=== PATIENT | female | born 1950 | race Two or more races ===

== ENCOUNTER 2023-03-05 10:04 | Outpatient (AMB) | payer OTHER, SELFPAY ==
--- NOTE | 2023-03-05 10:25 | A.OFFVIS_ITS ---
Intake Vital Signs 03/05/23 10:27 Height 5 ft 6.5 in Weight 143 lb 4.807 oz BMI 22.8 BP 138/63 Blood Pressure Location Lt brachial Position Standing Pulse 71 Pulse Source Pulse Oximeter Pulse Oximetry (%) 97 Oxygen Delivery Method Room Air Intake Visit Reasons: Asthma Public Records Researcher Required: No Allergies latex Allergy (Severe, Verified 03/05/23 10:32) Irritable on Skin Penicillins Adverse Reaction (Severe, Verified 03/05/23 10:32) Swelling HPI HPI Comments History of Present Illness Details The patient is here for a pulmonary evaluation. The patient is a 72 year woman with a history of lifelong asthma in addition to allergies who was being followed closely by an health promotion officer in [place] who recently retired. Ultimately she has mild intermittent asthma. She has been controlled with Xopen ex. 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 The patient has tried albuterol, unfortunately, it causes an adverse effect and she cannot tolerate any formulations of albuterol. Therefore, she was placed on Xopenex and she seems to be tolerating well. She was also given HFA and ampules. Although she does need a nebulizer. Therefore will risk West a nebulizer for her at this time for her to use with the levo albuterol. Clinically the patient is feeling well at this time. She needs to undergo further evaluation for kidney stones and she has other procedures that have her some what where it. At this point will hold off on doing any breathing studies because of her history of the aneurysm and clinically she is doing okay. Will have her follow-up in 3 months and will decide if additional interventions are required. [facility] Medical History (Updated 03/05/23 @ 11:00 by Julio C Bergeron MD) Kidney stone Aneurysm artery, neck Glaucoma Chronic allergic rhinitis Asthma Social History (Updated 03/05/23 @ 10:37 by SHERRIE Clemens) Patient Tobacco Use Status: Never used Tobacco Review of Systems Const Denies fever(s) Eyes Denies change in vision Card Denies chest pain Resp Reports cough and Reports wheezing GI Reports no additional complaints Musc Reports no additional complaints Skin/Breast Denies rash Neuro Reports no additional complaints Ottoniel/Lymph Denies lymphadenopathy Aller/Immun Reports wheezing Physical Exam Vital Signs: Last Vital Signs Pulse 71 03/05/23 10:27 BP 138/63 03/05/23 10:27 Pulse Ox 97 03/05/23 10:27 Oxygen Delivery Method Room Air 03/05/23 10:27 BMI result Body Mass Index 22.8 Const General: comfortable HEENT Head: Yes normocephalic Neck Neck: Yes supple Chest Chest palpation & inspection: normal inspection of the chest Resp Effort & Inspection: normal respiratory effort Auscultation: no wheezes and diminished lung sounds Cardio Rate: regular rate Rhythm: regular rhythm Heart sounds: S1 normal heart sound present and S2 normal heart sound present GI Palpation (GI): Soft to palpation Skin General skin exam: no rashes or lesions noted Extrem General: Yes no clubbing, cyanosis or edema Office Procedures Nebulizer Teach Details: Chelsea was educated on the proper use and cleaning of the nebulizer machine. Chelsea states she understands and does not have any questions at this time. [id number] - Nebulizer Teach Assessment & Plan Assessment & Plan (1) Asthma: Code(s): J45.909 - Unspecified asthma, uncomplicated Qualifiers: Asthma complication type: uncomplicated Asthma persistence: persistent Asthma severity: moderate Qualified Code(s): J45.40 - Moderate persistent asthma, uncomplicated (2) Chronic allergic rhinitis: Code(s): J30.9 - Allergic rhinitis, unspecified (3) Glaucoma: Code(s): H40.9 - Unspecified glaucoma Qualifiers: Glaucoma type: unspecified Laterality: unspecified laterality Qualified Code(s): H40.9 - Unspecified glaucoma Plan Will provide a nebulizer continue Xopenex as needed F/U 3-4 months Orders: Orders AMB Nebulizer Teach Today J45.909 - Unspecified asthma, uncomplicated Medications: New levalbuterol tartrate 45 mcg/actuation (Xopenex HFA) 2 puffs inhalation Q4-6H 30 days PRN 15 grams 11RF shortness of breath or wheezing Coding Level of Care Code New Pt Level 4 (12319) Diagnoses Moderate persistent asthma without complication J45.40 Asthma complication type: uncomplicated Asthma persistence: persistent Asthma severity: moderate Chronic allergic rhinitis J30.9 Glaucoma, unspecified glaucoma type, unspecified laterality H40.9 Glaucoma type: unspecified Laterality: unspecified laterality CPT Codes Nebulizer Teach - Nebulizer Teach: [id number] - Nebulizer Teach ([id number]) Time Spent (min) 37
[2023-03-05 10:27] VITALS: BP 138/63; PULSE 71; O2SAT 97; BMI 22.8
== END 2023-03-05 11:16 | disposition home or self-care (01) ==
PROVIDERS: PCP Internal Medicine Endocrinology, Diabetes & Metabolism; Visit Provider Hospitalist
DX: J45.909 Unspecified asthma, uncomplicated (principal)
CPT/HCPCS: 99204

== ENCOUNTER → 2023-03-05 10:04 | Outpatient (BNVA) | payer OTHER, SELFPAY | PROVIDERS: PCP Internal Medicine Endocrinology, Diabetes & Metabolism; Visit Provider Hospitalist | DX: J45.40 Moderate persistent asthma, uncomplicated (principal); J30.9 Allergic rhinitis, unspecified; H40.9 Unspecified glaucoma | CPT/HCPCS: 94664 ==

== ENCOUNTER 2023-06-15 10:39 | Outpatient (AMB) | payer OTHER, SELFPAY ==
--- NOTE | 2023-06-15 10:48 | A.OFFVIS_ITS ---
Intake Vital Signs 06/15/23 10:49 Height 5 ft 6 in Weight 141 lb BMI 22.8 Pulse 65 Pulse Source Pulse Oximeter Pulse Oximetry (%) 98 Oxygen Delivery Method Room Air Intake Visit Reasons: Asthma Mental Health Coordinator Required: No Allergies latex Allergy (Severe, Verified 06/15/23 10:50) Irritable on Skin Penicillins Adverse Reaction (Severe, Verified 06/15/23 10:50) Swelling HPI HPI Comments History of Present Illness Details The patient is a 72 year woman with a history of lifelong asthma in addition to allergies who was being followed closely by an analytics consultant in [place] who recently retired. Ultimately she has mild intermittent asthma. She has been controlled with Xopenex. 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 The patient has tried albuterol, unfortunately, it causes an adverse effect and she cannot tolerate any formulations of albuterol. Therefore, she was placed on Xopenex and she seems to be tolerating well. She was also given HFA and ampules. Although she does need a nebulizer. Therefore will risk West a nebulizer for her at this time for her to use with the levo albuterol. Clinically the patient is feeling well at this time. She needs to undergo further evaluation for kidney stones and she has other procedures that have her some what where it. At this point will hold off on doing any breathing studies because of her history of the aneurysm and clinically she is doing okay. Will have her follow-up in 3 months and will decide if additional interventions are required. 06/15/2023 The patient is patient is her e for a pulmonary follow up visit. Overall, doing well from a respiratory standpoint. She has been using her xopenex as needed. Has been masking up and avoiding viral syndromes. Has had intermittent coughing, mild in severity. Uses the xopenex less than 2 times a week, but usually her asthma worsens in the colder winter months. Has been having some abdominal pain, mild to moderate. She will be working on her diet,minimizing lactose. We will request a CXR for a baseline for now. [facility] Medical History (Updated 03/05/23 @ 11:00 by Julio C Bergeron MD) Kidney stone Aneurysm artery, neck Glaucoma Chronic allergic rhinitis Asthma Social History (Updated 03/05/23 @ 10:37 by SHERRIE Clemens) Patient Tobacco Use Status: Never used Tobacco Review of Systems Const Denies fever(s) Eyes Denies change in vision Card Denies chest pain Resp Reports cough and Reports wheezing GI Reports abdominal pain and Reports GI cramping Musc Reports no additional complaints Skin/Breast Denies rash Neuro Reports no additional complaints Ottoniel/Lymph Denies lymphadenopathy Aller/Immun Reports wheezing Physical Exam Vital Signs: Last Vital Signs Pulse 65 06/15/23 10:49 Pulse Ox 98 06/15/23 10:49 Oxygen Delivery Method Room Air 06/15/23 10:49 BMI result Body Mass Index 22.8 Const General: comfortable HEENT Head: Yes normocephalic Neck Neck: Yes supple Chest Chest palpation & inspection: normal inspection of the chest Resp Effort & Inspection: normal respiratory effort Auscultation: clear to auscultation bilaterally and no wheezes Cardio Rate: regular rate Rhythm: regular rhythm Heart sounds: S1 normal heart sound present and S2 normal heart sound present GI Palpation (GI): Soft to palpation Skin General skin exam: no rashes or lesions noted Extrem General: Yes no clubbing, cyanosis or edema Assessment & Plan Assessment & Plan (1) Asthma: Code(s): J45.909 - Unspecified asthma, uncomplicated Qualifiers: Asthma complication type: uncomplicated Asthma persistence: persistent Asthma severity: moderate Qualified Code(s): J45.40 - Moderate persistent asthma, uncomplicated (2) Chronic allergic rhinitis: Code(s): J30.9 - Allergic rhinitis, unspecified (3) Glaucoma: Code(s): H40.9 - Unspecified glaucoma Qualifiers: Glaucoma type: unspecified Laterality: unspecified laterality Qualified Code(s): H40.9 - Unspecified glaucoma Plan continue Xopenex as needed CXR F/U 12 months Orders: Orders XR chest 2V 06/15/23 J45.909 - Unspecified asthma, uncomplicated Coding Level of Care Code Est Pt Level 4 (52539) Diagnoses Moderate persistent asthma without complication J45.40 Asthma complication type: uncomplicated Asthma persistence: persistent Asthma severity: moderate Chronic allergic rhinitis J30.9 Glaucoma, unspecified glaucoma type, unspecified laterality H40.9 Glaucoma type: unspecified Laterality: unspecified laterality Time Spent (min) 16
[2023-06-15 10:49] VITALS: PULSE 65; O2SAT 98; BMI 22.8
== END 2023-06-15 11:15 | disposition home or self-care (01) ==
PROVIDERS: PCP Internal Medicine Endocrinology, Diabetes & Metabolism; Visit Provider Hospitalist
DX: J45.40 Moderate persistent asthma, uncomplicated (principal); J30.9 Allergic rhinitis, unspecified; H40.9 Unspecified glaucoma
CPT/HCPCS: 99214

== ENCOUNTER → 2023-06-15 10:39 | Outpatient (BNVA) | payer OTHER, SELFPAY | PROVIDERS: PCP Internal Medicine Endocrinology, Diabetes & Metabolism; Visit Provider Hospitalist | DX: J45.40 Moderate persistent asthma, uncomplicated (principal); J30.9 Allergic rhinitis, unspecified; H40.9 Unspecified glaucoma | CPT/HCPCS: 99212 ==

== ENCOUNTER 2023-09-24 09:58 | Outpatient (REF) | payer OTHER, SELFPAY ==
--- NOTE | ~2023-09-24 | XR_ITS ---
EXAMINATION: XR CHEST CLINICAL INFORMATION: Asthma COMPARISON: None available. TECHNIQUE: 2 views of the chest were obtained. FINDINGS: No significant abnormality is noted involving the heart, lungs, mediastinum, bony thorax or soft tissues. XR/XR chest 2V IMPRESSION: Unremarkable examination.
== END 2023-09-24 09:59 | disposition home or self-care (01) ==
LOC: HO.XRAY 09:58
PROVIDERS: PCP Internal Medicine Endocrinology, Diabetes & Metabolism; Visit Provider Hospitalist
DX: J45.909 Unspecified asthma, uncomplicated (principal)
CPT/HCPCS: 71046

== ENCOUNTER 2023-12-05 08:57 | Outpatient (AMB) | payer OTHER, SELFPAY ==
[2023-12-05 09:02] VITALS: BP 128/60; PULSE 65; O2SAT 98; BMI 22.7
--- NOTE | 2023-12-05 09:02 | MHC.OFFVIS ---
Vital Signs 12/05/23 09:02 Height 5 ft 6.5 in Weight 143 lb BMI 22.7 BP 128/60 Blood Pressure Location Lt brachial Position Sitting Pulse 65 Pulse Source Pulse Oximeter Pulse Oximetry (%) 98 Oxygen Delivery Method Room Air Intake Visit Reasons: asthma Barking Machine Feeder Required: No Allergies latex Allergy (Severe, Verified 12/05/23 09:04) Irritable on Skin Penicillins Adverse Reaction (Severe, Verified 12/05/23 09:04) Swelling HPI Comments Details: The patient is a 72 year woman with a history of lifelong asthma in addition to allergies who was being followed closely by an director food and beverage in [place] who recently retired. Ultimately she has mild intermittent asthma. She has been controlled with Xopenex. 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 The patient has tried albuterol, unfortunately, it causes an adverse effect and she cannot tolerate any formulations of albuterol. Therefore, she was placed on Xopenex and she seems to be tolerating well. She was also given HFA and ampules. Although she does need a nebulizer. Therefore will risk West a nebulizer for her at this time for her to use with the levo albuterol. Clinically the patient is feeling well at this time. She needs to undergo further evaluation for kidney stones and she has other procedures that have her some what where it. At this point will hold off on doing any breathing studies because of her history of the aneurysm and clinically she is doing okay. Will have her follow-up in 3 months and will decide if additional interventions are required. 06/15/2023 The patient is patient is here for a pulmonary follow up visit. Overall, doing well from a respiratory standpoint. She has been using her xopenex as needed. Has been masking up and avoiding viral syndromes. Has had intermittent coughing, mild in severity. Uses the xopenex less than 2 times a week, but usually her asthma worsens in the colder winter months. Has been having some abdominal pain, mild to moderate. She will be working on her diet,minimizing lactose. We will request a CXR for a baseline for now. 12/05/2023 the patient is here for a pulmonary follow-up visit. Overall she is doing okay. Back in October she did have an asthma exacerbation. She did call the office but we had no availability. She did see her primary care center course of prednisone. She quickly improved. She has a Xopenex inhaler and she has a nebulizer machine but she has not used it. We again talked about the use of the nebulizer. It is perfectly fine to use she does not have to finish a full treatment it is given any adverse effects. She did have an x-ray sometime in September. We did review it together. No evidence of any underlying pulmonary disease. Otherwise patient is doing well this time. She is going to continue with the current therapy and will follow-up in a year's time. If she has any worsening symptoms she always call for an earlier assessment. [facility] Medical History (Updated 03/05/23 @ 11:00 by Julio C Bergeron MD) Kidney stone Aneurysm artery, neck Glaucoma Chronic allergic rhinitis Asthma Social History (Updated 03/05/23 @ 10:37 by SHERRIE Clemens) Patient Tobacco Use Status: Never used Tobacco Review of Systems Const Denies fever(s) Eyes Denies change in vision Card Denies chest pain Resp Reports cough and Reports wheezing GI Reports abdominal pain and Reports GI cramping Musc Reports no additional complaints Skin/Breast Denies rash Neuro Reports no additional complaints Ottoniel/Lymph Denies lymphadenopathy Aller/Immun Reports wheezing Physical Exam Vital Signs: Last Vital Signs Pulse 65 12/05/23 09:02 BP 128/60 12/05/23 09:02 Pulse Ox 98 12/05/23 09:02 Oxygen Delivery Method Room Air 12/05/23 09:02 BMI result Body Mass Index 22.7 Const General: comfortable HEENT Head: Yes normocephalic Neck Neck: Yes supple Chest Chest palpation & inspection: normal inspection of the chest Resp Effort & Inspection: normal respiratory effort Auscultation: clear to auscultation bilaterally and no wheezes Cardio Rate: regular rate Rhythm: regular rhythm Heart sounds: S1 normal heart sound present and S2 normal heart sound present GI Palpation (GI): Soft to palpation Skin General skin exam: no rashes or lesions noted Extrem General: Yes no clubbing, cyanosis or edema Results Reviewed Results Reviewed: CXR personally reviewed by me, normal Assessment & Plan Assessment & Plan (1) Asthma: Code(s): J45.909 - Unspecified asthma, uncomplicated Category: Medical Qualifiers: Asthma complication type: uncomplicated Asthma persistence: persistent Asthma severity: moderate Qualified Code(s): J45.40 - Moderate persistent asthma, uncomplicated (2) Chronic allergic rhinitis: Code(s): J30.9 - Allergic rhinitis, unspecified Category: Medical (3) Glaucoma: Code(s): H40.9 - Unspecified glaucoma Category: Medical Qualifiers: Glaucoma type: unspecified Laterality: unspecified laterality Qualified Code(s): H40.9 - Unspecified glaucoma Plan continue Xopenex as needed allergy therapy as needed F/U 12 months Medications: Refilled levalbuterol tartrate 45 mcg/actuation (Xopenex HFA) 2 puffs inhalation Q4-6H PRN 15 grams 11RF shortness of breath or wheezing 30 days Coding Level of Care Code Est Pt Level 4 (19057) Diagnoses Moderate persistent asthma without complication J45.40 Asthma complication type: uncomplicated Asthma persistence: persistent Asthma severity: moderate Chronic allergic rhinitis J30.9 Glaucoma, unspecified glaucoma type, unspecified laterality H40.9 Glaucoma type: unspecified Laterality: unspecified laterality Time Spent (min) 16
== END 2023-12-05 09:22 | disposition home or self-care (01) ==
PROVIDERS: PCP Internal Medicine Endocrinology, Diabetes & Metabolism; Visit Provider Hospitalist
DX: J45.40 Moderate persistent asthma, uncomplicated (principal); J30.9 Allergic rhinitis, unspecified; H40.9 Unspecified glaucoma
CPT/HCPCS: 99214

== ENCOUNTER → 2023-12-05 08:57 | Outpatient (BNVA) | payer OTHER, SELFPAY | PROVIDERS: PCP Internal Medicine Endocrinology, Diabetes & Metabolism; Visit Provider Hospitalist | DX: J45.40 Moderate persistent asthma, uncomplicated (principal); J30.9 Allergic rhinitis, unspecified; H40.9 Unspecified glaucoma | CPT/HCPCS: 99212 ==

== ENCOUNTER 2024-09-19 09:20 | Outpatient (AMB) | payer OTHER, SELFPAY ==
[2024-09-19 09:24] VITALS: BP 130/64; PULSE 65; O2SAT 99; BMI 23.0
--- NOTE | 2024-09-19 09:24 | A.OFFVIS_ITS ---
Vital Signs 09/19/24 09:24 Height 5 ft 6.5 in Weight 144 lb 6.444 oz BMI 23.0 BP 130/64 Blood Pressure Location Lt brachial Position Sitting Pulse 65 Pulse Source Pulse Oximeter Pulse Oximetry (%) 99 Oxygen Delivery Method Room Air Intake Visit Reasons: Asthma Allergies latex Allergy (Severe, Verified 09/19/24 09:27) Irritable on Skin Penicillins Adverse Reaction (Severe, Verified 09/19/24 09:27) Swelling HPI Comments Details: The patient is a 73 year woman with a history of lifelong asthma in addition to allergies who was being followed closely by an tear down worker in [place] who recently retired. Ultimately she has mild intermittent asthma. She has been controlled with Xopenex. 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 The patient has tried albuterol, unfortunately, it causes an adverse effect and she cannot tolerate any formulations of albuterol. Therefore, she was placed on Xopenex and she seems to be tolerating well. She was also given HFA and ampules. Although she does need a nebulizer. Therefore will risk West a nebulizer for her at this time for her to use with the levo albuterol. Clinically the patient is feeling well at this time. She needs to undergo further evaluation for kidney stones and she has other procedures that have her some what where it. At this point will hold off on doing any breathing studies because of her history of the an eurysm and clinically she is doing okay. Will have her follow-up in 3 months and will decide if additional interventions are required. 06/15/2023 The patient is patient is here for a pulmonary follow up visit. Overall, doing well from a respiratory standpoint. She has been using her xopenex as needed. Has been masking up and avoiding viral syndromes. Has had intermittent coughing, mild in severity. Uses the xopenex less than 2 times a week, but usually her asthma worsens in the colder winter months. Has been having some abdominal pain, mild to moderate. She will be working on her diet,mi nimizing lactose. We will request a CXR for a baseline for now. 12/05/2023 the patient is here for a pulmonary follow-up visit. Overall she is doing okay. Back in October she did have an asthma exacerbation. She did call the office but we had no availability. She did see her primary care center course of prednisone. She quickly improved. She has a Xopenex inhaler and she has a nebulizer machine but she has not used it. We again talked about the use of the nebulizer. It is perfectly fine to use she does not have to finish a full treatment it is given any adverse effects. She did have an x-ray sometime in September. We did review it together. No evidence of any underlying pulmonary disease. Otherwise patient is doing well this time. She is going to continue with the current therapy and will follow-up in a year's time. If she has any worsening symptoms she always call for an earlier assessment. 09/19/2024 the patient is here for pulmonary follow-up visit. Overall the patient is doing well. She has not developed any worsening respiratory symptoms have yes. Typically when she does develop an asthma flare-up she does respond to a low-dose prednisone burst. The patient has been using the Xopenex. Tip of the less than 2 times a week. Although usually in the springtime she needs it more. She started also noticed some dyspnea on exertion specially when going up a flight of stairs. [id number] severity. The patient has used Singulair in the past but stopped it because she was having some nightmares. I did tell her that potentially season Singulair the smaller dose may be something to consider. The patient will continue her current respiratory therapy with Xopenex. And she will follow-up in a year's time. We did discuss her vaccines and she is going to get her Prevnar vaccine up today and also needs to get her Tdap up-to-date. [facility] Medical History (Updated 03/05/23 @ 11:00 by Julio C Bergeron MD) Kidney stone Aneurysm artery, neck Glaucoma Chronic allergic rhinitis Asthma Social History Patient Tobacco Use Status: Never used Tobacco Review of Systems Const Denies fever(s) Eyes Denies change in vision Card Denies chest pain Resp Reports cough and Reports wheezing GI Reports no additional complaints Musc Reports no additional complaints Skin/Breast Denies rash Neuro Reports no additional complaints Ottoniel/Lymph Denies lymphadenopathy Aller/Immun Reports wheezing Physical Exam Vital Signs: Last Vital Signs Pulse 65 09/19/24 09:24 BP 130/64 09/19/24 09:24 Pulse Ox 99 09/19/24 09:24 Oxygen Delivery Method Room Air 09/19/24 09:24 BMI result Body Mass Index 23.0 Const General: comfortable HEENT Head: Yes normocephalic Neck Neck: Yes supple Chest Chest palpation & inspection: normal inspection of the chest Resp Effort & Inspection: normal respiratory effort Auscultation: clear to auscultation bilaterally and no wheezes Cardio Rate: regular rate Rhythm: regular rhythm Heart sounds: S1 normal heart sound present and S2 normal heart sound present GI Palpation (GI): Soft to palpation Skin General skin exam: no rashes or lesions noted Extrem General: Yes no clubbing, cyanosis or edema Assessment & Plan Assessment & Plan (1) Asthma: Code(s): J45.909 - Unspecified asthma, uncomplicated Category: Medical Qualifiers: Asthma complication type: uncomplicated Asthma persistence: persistent Asthma severity: moderate Qualified Code(s): J45.40 - Moderate persistent asthma, uncomplicated (2) Chronic allergic rhinitis: Code(s): J30.9 - Allergic rhinitis, unspecified Category: Medical (3) Glaucoma: Code(s): H40.9 - Unspecified glaucoma Category: Medical Qualifiers: Glaucoma type: unspecified Laterality: unspecified laterality Qualified Code(s): H40.9 - Unspecified glaucoma Plan continue Xopenex as needed allergy therapy as needed consider 1/2 dose singulair F/U 12 months Medications: New prednisone PO daily; Take 2 tabs daily x 5 days, then 1 tablet daily x 5 days 15 tabs 0RF 10 days Changed From levalbuterol tartrate 45 mcg/actuation (Xopenex HFA) 2 puffs inhalation Q4-6H 30 days PRN 15 grams 11RF shortness of breath or wheezing To levalbuterol tartrate 45 mcg/actuation (Xopenex HFA) 2 puffs inhalation Q4H PRN 15 grams 11RF shortness of breath or wheezing 30 days Coding Level of Care Code Est Pt Level 4 (66075) Diagnoses Moderate persistent asthma without complication J45.40 Asthma complication type: uncomplicated Asthma persistence: persistent Asthma severity: moderate Chronic allergic rhinitis J30.9 Glaucoma, unspecified glaucoma type, unspecified laterality H40.9 Glaucoma type: unspecified Laterality: unspecified laterality Time Spent (min) 16
--- OUTSIDE RECORDS SUMMARY | 2024-09-19 10:09 | XMS_ITS | Clinical Summary ---
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 Name Role Phone Unavailable Primary Care Provider Unavailabl e Social History Tobacco Use Types Packs/Day Years Used Date Smoking Tobacco: Never Assessed Comments Unknown Sex and Gender Information Value Date Recorded Sex Assigned at Not on file Legal Sex Female 9:38 AM EST Gender Identity Not on file Sexual Orientation Not on file Plan of Treatment Health Maintenance Due Date Last Done Comments COVID-19 Vaccine (#1) 1954 DTaP,Tdap,and Td Vaccines (1 - Tdap) 1968 Pneumococcal Vaccine: 50+ Years (1 of 2 - PCV) 1968 Zoster Vaccines (1 of 2) 1968 Colorectal Cancer Screening: Colonoscopy 05/21/2022 Depression Screening 05/21/2022 Falls Risk Assessment 05/21/2022 Hepatitis C Screening 05/21/2022 Social Influencers of Health Screening 05/21/2022 RSV Immunization Adult Patients (1 - 1-dose 75+ series) 2024 Influenza Vaccine (Season Ended) 2025 Breast Cancer Screening 03/11/2026 03/11/20 24, 03/02/2023, 02/27/2022, Additional history exists Osteoporosis Screening (Bone Density Screening) 03/11/2034 03/11/2024, 02/27/2022, 02/19/2020, Additional history exists HIB Vaccines Aged Out No longer eligi ble based on patient's age to complete this topic HPV Vaccines Aged Out No longer eligi ble based on patient's age to complete this topic Hepatitis A Vaccines Aged Out No long er eligible based on patient's age to complete this topic Hepatitis B Vaccines Aged Out No long er eligible based on patient's age to complete this topic IPV Vaccines Aged Out No longer eligi ble based on patient's age to complete this topic MMR Vaccines Aged Out No longer eligi ble based on patient's age to complete this topic Meningococcal ACWY Vaccine Aged Out N o longer eligible based on patient's age to complete this topic Meningococcal B Vacine Aged Out No lo nger eligible based on patient's age to complete this topic RSV Immunization Patients Under 20 months Aged Out No longer eligible based on patient's age to complete this topic Varicella Vaccines Aged Out No longer eligible based on patient's age to complete this topic Procedures Procedure Name Priority Date/Time Associated Diagnosis Comments [facility] DEXA AXIAL SKELETON Routine 03/11/2024 5:13 PM EDT Age-related osteoporosis without current pathological fracture [facility] SCREENING DIGITAL Routine 03/11/2024 7:27 AM EDT Encounter for screening mammogram for malignant neoplasm of breast from Last 3 Months or Most Recently Relevant to Health Maintenance Results * [facility] DEXA AXIAL SKELETON (03/11/2024 5:13 PM EDT) Anatomical Region Laterality Modality Mammography 03/10/2024 1:29 PM EDT Narrative 03/11/2024 5:13 PM EDT [facility] Diagnostic Imaging Department [address] [place], [place] [id number] Patient: ?/Age/Sex: 1950 - 73 - F Unit#: ??[id number] ? Location/Status: ??SPDIMAM/REG CLI ? Mnemonic/Ordering Site: ??MAMDEXAAX/SPMAM Ordering Physician: ??MARCIE BOWEN MD [facility] Dexa Axial Skeleton - 03/10/24 - [id number] Report Status:Signed History: Low estrogen state due to menopause. Personal history of rheumatoid arthritis. Vitamin D deficiency. Comparison: 02/27/22 Findings: Bone densitometry is performed utilizing dual energy x-ray absorptiometry (DXA) in the [employer] unit. The lumbar spine and proximal femora are evaluated in the AP projection. The FRAX questionaire was completed. The results indicate osteoporosis, with a lumbar spine T-score of -3.1. The Z score is -2.0, indicating very low bone mineral density for age. There has been a small, statistically significant decrease in bone mineral density in the spine since the previous study. ??The detailed DEXA report will be mailed to the referring physician's office. [employer] FRAX: 10-year Probability of Fracture: Major Osteoporotic 10.0 percent ??Hip 3.4 percent. IMPRESSION: Osteoporosis. [id number] Dictating Physician: ??LEANN CASTILLO MD Electronically Signed by: ??LEANN CASTILLO MD Dic Date/Time: ??03/11/241711 Sign date/Time: ??03/11/24 171 Procedure Note Leann Castillo MD - 04/02/2024 [facility] Diagnostic Imaging Department [address] [place] [address] Patient: CHELSEA FLORES /Age/Sex: 1950 - 73 - F Unit#: [id number] Location/Status: SPDIMAM/REG CLI [facility] Ordering Physician: MARCIE BOWEN MD [facility] Dexa Axial Skeleton - 03/10/24 - 1405 Report Status:Signed History: Low estrogen state due to menopause. Personal history ofrheumatoid arthritis. Vitamin D deficiency. Comparison: 02/27/22 Findings: Bone densitometry is performed utilizing dual energy x-ray absorptiometry(DXA) in the [employer] unit. The lumbar spine and proximal femora areevaluated in the AP projection. The FRAX questionaire was completed. The results indicate osteoporosis, with a lumbar spine T-score of -3.1.The Z score is -2.0, indicating very low bone mineral density for age. There has been a small, statistically significant decrease in bonemineral density in the spine since the previous study. The detailed DEXA reportwill be mailed to the referring physician's office. [employer] FRAX: 10-year Probability of Fracture: Major Osteoporotic 10.0 percent Hip 3.4 percent. IMPRESSION: Osteoporosis. [id number] Dictating Physician: LEANN CASTILLO MD Electronically Signed by: LEANN CASTILLO MD Dic Date/Time: 03/11/241711 Sign date/Time: 03/11/241712 us Marcie Bowen MD IMG BI PROCEDURES Fi nal Result * [facility] SCREENING DIGITAL (03/11/2024 7:27 AM EDT) Anatomical Region Laterality Modality Mammography 03/10/2024 1:28 PM EDT Narrative 03/11/2024 7:27 AM EDT [facility] Diagnostic Imaging Department [address] [place] [id number] Patient: ?/Age/Sex: 1950 - 73 - F Unit#: ??[id number] ? Location/Status: ??SPDIMAM/REG CLI ? Mnemonic/Ordering Site: ??DIGSC/SPMAM Ordering Physician: ??MARCIE BOWEN MD [facility] Screening Digital - 03/10/24 - 1349 Report Status:Signed EXAM: [facility] Screening Digital EXAM DATE AND TIME: 03/10/2024 1:50 PM HISTORY: ??Screening. Prior benign excisional biopsies of both breasts. Benign stereotactic biopsy right breast. COMPARISON: ??03/01/23, 02/27/22, 02/17/21, 02/16/20 TECHNIQUE: Bilateral digital breast tomosynthesis was performed in the CC and MLO projections. Computer aided detection with [employer] 3D 3.1 was employed. TISSUE DENSITY: c. The breasts are heterogeneously dense, which may obscure small masses. FINDINGS: Focal asymmetry and architectural distortion are again seen in the middle 12:00 position of the right breast, consistent with surgical scar. Focal asymmetry and architectural distortion are again seen in the posterior 11:00 position of the left breast, consistent with surgical scar. No suspicious masses, grouped microcalcifications, or developing architectural distortion are seen. Benign-appearing micro and macrocalcifications are again seen bilaterally. A biopsy marker is present in the lateral right breast. Vascular calcification is present. IMPRESSION: Stable mammographic appearance of the breasts, including bilateral surgical scars. ??No evidence of malignancy is seen. A negative mammogram in the presence of a clinically suspicious palpable abnormality does not preclude the possibility of malignancy or alter the indications for biopsy. BI-RADS: ??Category 2: Benign RECOMMENDATION(S): 1: Routine screening mammogram BILATERAL in 1 year. [facility] [address] [place] [address] Dictating Physician: ??LEANN CASTILLO MD Electronically Signed by: ??LEANN CASTILLO MD Dic Date/Time: ??03/11/24723 Sign date/Time: ??03/11/24726 Procedure Note Leann Castillo MD - 04/02/2024 [facility] Diagnostic Imaging Department [address] [place] [address] Patient: CHELSEA FLORES /Age/Sex: 1950 - 73 - F Unit#: [id number] Location/Status: [facility] CLI Mnemonic/Ordering Site: [facility] Ordering Physician: MARCIE BOWEN MD [facility] Screening Digital - 03/10/24 - 1349 Report Status:Signed EXAM: [facility] Screening Digital EXAM DATE AND TIME: 03/10/2024 1:50 PM HISTORY: Screening. Prior benign excisional biopsies of both breasts.Benign stereotactic biopsy right breast. COMPARISON: 03/01/23, 02/27/22, 02/17/21, 02/16/20 TECHNIQUE: Bilateral digital breast tomosynthesis was performed in the CCand MLO projections. Computer aided detection with [employer] 3D 3.1was employed. TISSUE DENSITY: c. The breasts are heterogeneously dense, which mayobscure small masses. FINDINGS: Focal asymmetry and architectural distortion are again seen in the [id number] position of the right breast, consistent with surgical scar. Focalasymmetry and architectural distortion are again seen in the posterior 11:00 position ofthe left breast, consistent with surgical scar. No suspicious masses, grouped microcalcifications, or developingarchitectural distortion are seen. Benign-appearing micro and macrocalcifications areagain seen bilaterally. A biopsy marker is present in the lateral rightbreast. Vascular calcification is present. IMPRESSION: Stable mammographic appearance of the breasts, including bilateralsurgical scars. No evidence of malignancy is seen. A negative mammogram in the presence of a clinically suspicious palpable abnormality does not preclude the possibility of malignancy or alter the indications for biopsy. BI-RADS: Category 2: Benign RECOMMENDATION(S): 1: Routine screening mammogram BILATERAL in 1 year. Mammogram performed at [facility] [place] [address] Dictating Physician: LEANN CASTILLO MD Electronically Signed by: LEANN CASTILLO MD Dic Date/Time: 03/11/24723 Sign date/Time: 03/11/24726 us Marcie Bowen MD IMG BI PROCEDURES Fi nal Result from Last 3 Months or Most Recently Relevant to Health Maintenance
--- OUTSIDE RECORDS SUMMARY | 2024-09-19 10:09 | XMS_ITS | Continuity of Care Document ---
Author Organization [facility] Address [address] [place] [address] Phone [phone] Problems Active Problems Provider Date Essential hypertension Amanda Nelson Onset: 01/06/2022 Asthma Fariha Mahajan M.D. Ons et: 01/06/2022 Osteoporosis Fariha Mahajan M.D. Ons et: 01/06/2022 Glaucoma Fariha Mahajan M.D. Ons et: 01/06/2022 Cerebral arterial aneurysm Fariha samayoa M.D. Onset: 01/06/2022 Primary hyperparathyroidism Fariha lopez M.D. Onset: 01/06/2022 Pure hypercholesterolemia Fariha Mahajan M.D. Onset: 01/06/2022 Prediabetes Fariha Mahajan M.D. Ons et: 01/06/2022 Gastroesophageal reflux disease Fariha Russo M.D. Onset: 01/06/2022 Vertigo Fariha Mahajan M.D. Ons et: 01/06/2022 History of transient ischaemic attack Fariha Carr M.D. Onset: 01/06/2022 Kidney stone Fariha Mahajan M.D. Ons et: 06/26/2023 Low back pain Fariha Mahajan M.D. 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 11/02/2023 [id number] Tablets 1 tab by mouth every morning as directed 10tabs Fariha Mahajan M.D. 11/02/2023 Aspirin Adult Low Knda44sq Tablets DR 1 by mouth every day Fariha Mahajan M.D. 01/06/2022 Vitamin F442zlu (2000 Ut) Capsules 1 by mouth every day Fariha Mahajan M.D. 01/06/2022 Yknifgqdza6cz Tablets take one tablet by mouth two times a day 180tabs Fariha Mahajan M.D. Atorvastatin Elbiaxq99ob Tablets take 1 tablet by mouth every day 90tabs Fariha Mahajan M.D. Xopenex JMB14mww/Act Aerosol 2 puffs as needed or every 4 hours 15gm Fariha Mahajan M.D. Brimonidine Tartrate0.1% Solution 1 gtt ou bid Unknown Systane0.4-0.3% Solution Use as directed at least 4 times daily Unknown Vital Signs Date Vital Result Comment 02/29/2024 2:44pm BP Systolic 118 mmHg BP Diastolic 60 mmHg Heart Rate 63 /min Height 66 inches 5'6 Weight 142.38 lb BMI (Body Mass Index) 23.0 kg/m2 Results Test Acquired Date Facility Test Result H/L Range Note Lipid Panel 02/29/2024 [facility] Cholesterol, Total 227 mg/dL High 100-199 Triglycerides 69 mg/dL 0-149 HDL Cholesterol 71 mg/dL >39 VLDL Cholestero l Simeon 12 mg/dL 5-40 LDL Chol Calc ([facility]) 144 mg/dL High 0-99 LDL Calc Comment: TNP Hemoglobin A1c 02/29/2024 [facility] Hemoglobin A1c 6.3 % High 4.8-5.6 1 Vitamin D, 25-Hydroxy 02/29/2024 [facility] Vitamin D, 25-Hydroxy 46.1 ng/mL 30.0-100 .0 2 Glucose Fingerstick 02/29/2024 Inhouse Glucose Fingerstick 84 CMP14 02/29/2024 [facility] Glucose 85 mg/dL 70-99 BUN 19 mg/dL 8-27 Creatinine 0.94 mg/dL 0.57-1.0 0 eGFR 64 mL/min/1.7 3 >59 Sodium 140 mmol/L 134-144 Potassium 4.9 mmol/L 3.5-5.2 Chloride 102 mmol/L 96-106 Carbon Dioxide, Total 25 mmol/L 20-29 Protein, Total 7.3 g/dL 6.0-8.5 Albumin 4.3 g/dL 3.8-4.8 Globulin, Total 3.0 g/dL 1.5-4.5 Bilirubin, Total 0.5 mg/dL 0.0-1 .2 Alkaline Phosphatase 99 IU/L 44-121 Ast (Sgot) 28 IU/L 0-40 Alt (SGPT) 14 IU/L 0-32 Calcium 10.4 mg/dL High 8.7-10.3 3 Calcium, 24Hr, Ur w/Creatinine 11/13/2023 [facility] Calcium, Urine 10.0 mg/dL Not Estab. 4 Calcium, Urine 24hr 160 mg/24hr 0-320 Calcium/Creat.R a oscar 148 mg/gcreat 29-442 Glucose Fingerstick 11/02/2023 Inhouse Glucose Fingerstick 81 25Oh Vitamin D 06/25/2023 [facility] 25Oh Vitamin D 38.7 NG/ML (20-50) Hemoglobin A1c 06/25/2023 Inhouse Hemoglobin A1c 5.9% Glucose Fingerstick 06/25/2023 Inhouse Glucose Fingerstick 78 Complete Abc With Diff 06/25/2023 [facility] WBC 6.2 K/MM3 (4.0-11. 0) RBC 4.18 M/MM3 Low (4.20-5. 40) HGB 12.4 GM/DL (11.7-15 .5) HCT 41.1 % (35.7-45 .8) MCV 98.3 FL (80.0-10 0.0) MCH 29.7 pg (27.0-34 .0) MCHC 30.2 g/dL Low (33.0-37 .0) PLT 300 K/MM3 (150-460 ) RDW-SD 47.5 FL High (<47.0) MPV 10.1 FL (9.4-12. 4) Automated NRBC 0.0 #/100WBC'S Abs. NRBC 0.0 K/MM3 Neut # 3.4 K/MM3 (1.3-7.0 ) Lymph # 2.1 K/MM3 (0.8-3.1 ) Pettis# 0.6 K/MM3 (0.4-0.9 ) Eo # 0.1 K/MM3 (0.0-0.4 ) Baso # 0.1 K/MM3 (0.0-0.1 ) Abs. Imm Gran 0.0 K/MM3 Neut 54.5 % (44-76) Lymph 33.2 % (15-43) Monocyte 8.9 % (4.5-10. 5) Eo 2.3 % (0-6) Baso 0.8 % (0-2) Imm Gran 0.3 % Comprehensive Metabolic Panl 06/25/2023 [facility] Glucose 74 mg/dL (70-99) BUN 23 mg/dL (8-23) Creatinine 0.9 mg/dL (0.5-1.0 ) Sodium 140 mmol/L (133-145 ) Potassium 4.6 mmol/L (3.6-5.2 ) Chloride 104 mmol/L (98-107) Bicarbonate 27 mmol/L (22-29) Anion Gap 9 (4-17) Albumin 4.3 GM/DL (3.4-4.8 ) Calcium 10.4 mg/dL (8.6-10. 5) Bilirubin,Total 0.2 mg/dL (0-1.2 ) Total Protein 7.2 GM/DL (6.2-8.2 ) Ag Ratio 1.5 Ast 20 U/L (0-32) Alk Phos 97 U/L (35-104) Alt 12 U/L (0-33) Estimated GFR Creatinine 64 ML/MIN/1.7 3M2 5 Comprehensive Metabolic Panl 09/01/2022 [facility] Glucose 82 mg/dL (70-99) BUN 10 mg/dL (8-23) Creatinine 1.0 mg/dL (0.5-1.0 ) Sodium 140 mmol/L (133-145 ) Potassium 4.1 mmol/L (3.6-5.2 ) Chloride 103 mmol/L (98-107) Bicarbonate 28 mmol/L (22-29) Anion Gap 9 (4-17) Albumin 4.6 GM/DL (3.4-4.8 ) Calcium 11.0 mg/dL High (8.6-10. 5) Bilirubin,Total 0.5 mg/dL (0-1.2 ) Total Protein 7.7 GM/DL (6.2-8.2 ) Ag Ratio 1.5 Ast 22 U/L (0-32) Alk Phos 107 U/L High (35-104) Alt 11 U/L (0-33) Estimated GFR Creatinine 61 ML/MIN/1.7 3M2 6 Lipid Panel 09/01/2022 [facility] Cholesterol, Total 211 mg/dL High (<200) Triglyceride 79 mg/dL (<150) HDL Chol 70 mg/dL (>39) LDL Cholesterol , Calculated 125 mg/dL (0-130) Non HDL Cholesterol (Calc) 141 mg/dL (<160) 25Oh Vitamin D 09/01/2022 [facility] 25Oh Vitamin D 44.5 NG/ML (20-50) PTH, Intact 09/01/2022 [facility] PTH, Intact 65 pg/mL (15-65) Glucose Fingerstick 09/01/2022 Inhouse Glucose Fingerstick 96 Hemoglobin A1c 09/01/2022 Inhouse Hemoglobin A1c 6.0% Comprehensive Metabolic Panl 01/06/2022 [facility] Glucose 105 mg/dL High (70-99) BUN 18 mg/dL (8-23) Creatinine 1.0 mg/dL (0.5-1.0 ) Sodium 142 mmol/L (133-145 ) Potassium 5.3 mmol/L High (3.6-5.2 ) Chloride 104 mmol/L (98-107) Bicarbonate 29 mmol/L (22-29) Anion Gap 9 (4-17) Albumin 4.2 GM/DL (3.4-4.8 ) Calcium 10.2 mg/dL (8.6-10. 5) Bilirubin,Total 0.3 mg/dL (0-1.2 ) Total Protein 7.2 GM/DL (6.2-8.2 ) Ag Ratio 1.4 Ast 26 U/L (0-32) Alk Phos 94 U/L (35-104) Alt 17 U/L (0-33) Estimated GFR Creatinine 61 ML/MIN/1.7 3M2 7 Complete Auto Blood Count 01/06/2022 [facility] WBC 5.8 K/MM3 (4.0-11. 0) RBC 4.03 M/MM3 Low (4.20-5. 40) HGB 12.2 GM/DL (11.7-15 .5) HCT 39.4 % (35.7-45 .8) MCV 97.8 FL (80.0-10 0.0) MCH 30.3 pg (27.0-34 .0) MCHC 31.0 g/dL Low (33.0-37 .0) PLT 259 K/MM3 (150-460 ) RDW-SD 50.4 FL High (<47.0) MPV 10.8 FL (9.4-12. 4) Automated NRBC 0.0 #/100WBC'S Abs. NRBC 0.0 K/MM3 PTH, Intact 01/06/2022 [facility] PTH, Intact Test not perform <SEE NOTE> 8 1 Prediabetes: 5.7 - 6 .4 Diabetes: >6.4 Glycemic control for adults with diabetes: <7.0 2 Vitamin D deficiency has been defined by the [place] of [employer] and an Endocrine Society practice guideline as a level of serum 25-OH vitamin D less than 20 ng/mL (1,2). The Endocrine Society went on to further define vitamin D insufficiency as a level between 21 and 29 ng/mL (2). 1. IOM ([place] [employer]). 2010. Dietary reference intakes for calcium and D. [place]: The National Academies Press. 2. Enrique MF, Federica NC, Salomón CARTER, et al. Evaluation, treatment, and prevention of vitamin D deficiency: an Endocrine Society clinical practice guideline. JCEM. 2010; 96(7):1911-30. 3 Verified by repeat analysis 4 A courtesy copy of t his report has been sent to the patient 5 Creatinine based est imated glomerular filtration (eGFR) in adults is calculated using the National Kidney Foundation recommended 2020 CKD-EPI equation. Estimates GFR from serum creatinine, age and sex. 6 Creatinine based est imated glomerular filtration (eGFR) in adults is calculated using the National Kidney Foundation recommended 202 CKD-EPI equation. Estimates GFR from serum creatinine, age and sex. 7 Creatinine based est imated glomerular filtration (eGFR) in adults is calculated using the National Kidney Foundation recommended 2020 CKD-EPI equation. Estimates GFR from serum creatinine, age and sex. 8 Test not performed, specimen stability Procedures Date Code Description Status 02/29/2024 92655 Collection Of Venous Blood B y Venipuncture Completed 06/25/2023 49041 Collection Of Venous Blood B y Venipuncture Completed 09/01/2022 77193 Collection Of Venous Blood B y Venipuncture Completed 01/06/2022 03651 Collection Of Venous Blood B y Venipuncture Completed Medical Devices Description No Information Available Encounters Type Date Location Provider Dx Diagnosis Office Visit 02/29/2024 2:30p Main Office Fariha Aragon M.D. R73.03 Prediabetes E21.0 Primary hyperparathy roidism E78.00 Pure hypercholestero lemia, unspecified I10 Essential (primary) hypertension I67.1 Cerebral aneurysm, n onruptured J45.40 Moderate persistent asthma, uncomplicated Assessments Date Code Description Provider 02/29/2024 R73.03 Prediabetes Fariha Reece M.D. 02/29/2024 E21.0 Primary hyperparathyroidism Fariha Mahajan M.D. 02/29/2024 E78.00 Pure hypercholesterolemia, u nspecified Fariha Mahajan M.D. 02/29/2024 I10 Essential (primary) hyperten jose francisco Fariha Mahajan M.D. 02/29/2024 I67.1 Cerebral aneurysm, nonruptur ed Fariha Mahajan M.D. 02/29/2024 J45.40 Moderate persist ent asthma, uncomplicated Fariha Mahajan M.D. Plan of Treatment Future Appointment(s):* 10/24/2024 2:30 pm - Fariha Mahajan M.D. at Main Office 02/29/2024 - Fariha Mahajan M.D.* R73.03 Prediabetes * E21.0 Primary hyperparathyroidism * E78.00 Pure hypercholesterolemia, unspecified * I10 Essential (primary) hypertension * I67.1 Cerebral aneurysm, nonruptured * J45.40 Moderate persistent asthma, uncomplicated Functional Status Description No Information Available Mental Status Description No Information Available Referrals Refer to Reason for Referral Status Appt [facility] [address] Project Manager FAXED DOCUMENTS AND RE FERRAL Scheduled 08/15/2023 [address] [facility] [address] [place] [address] [phone] [facility] RIGHT LOW BACK PAIN Closed 08/06/2023 [address] [place] [address] [phone] Gaurav Mendieta MD Stomach Closed [address] [place] [address] [phone] [facility] right lateral hip pain Closed [address] [place] [address] [phone] [facility] Left 4 th finger pain / trigge rling Closed 02/05/2023 [address] [place] [address] [phone] [facility] right lateral hip pain Closed [address] [place], [place] [id number] [phone] Julio C Bergeron asthma management-not urgent Closed 03/05/[address] [place] [address] [phone]
--- OUTSIDE RECORDS SUMMARY | 2024-09-19 10:09 | XMS_ITS | Data Portability ---
Author Organization [facility] Address [address] [place] [phone] Care Team Providers Care County Supervisor Name Role Phone [facility] Referring Provider Assessment Encounter Date Assessment Date Assessment LastModified by Organization Details LastModified Time 11/06/2022 11/06/2022 I have reviewed and agree with the assessment and plan as documented by the fleet operations manager. I provided real time medical direction for this encounter and was immediately available to provide additional phone based assistance as needed. History as noted by fleet operations manager. Pt reports that several hours after working in her garden last Sunday, 6 days go, she developed pain in her L ankle. She reports that pain has gradually worsened since then especially with weight bearing. She does not recall an injury to the ankle. No known insect bites or stings. No fevers or chills. No numbness or paresthesias of L foot. Pt denies any prior history of gout. On exam, pt is afebrile. L ankle with mild diffuse swelling c/w the R ankle. Diffuse mild tenderness of the L ankle also noted but no erythema or palpable warmth. ROM intact. Neurovascular exam of L foot normal. Impression: Pt with 6 days of gradually worsening L ankle pain and swelling. She denies any known injury but had been working in her garden prior to the onset of symptoms. No fever or evidence on exam to suggest an infection or acute inflammatory arthritis such as gout or pseudogout. I suspect pt had an occult injury with sprain and this is reviewed with her. She needs to have an XR of the ankle performed as well. Pt medicated with toradol 30mg IM. She is instructed to take her ibuprofen bid as needed for the pain. Primary care team needs to follow up with the pt and arrange for her to have an xray performed of the ankle. She may need an ankle splint applied as well for comfort. [email or web address] Not available 11/06/2022 13:00:01 Plan of Treatment Reminders Order Date Submit Date Provider Last Modified By Organization Details Last Modified Time Details Appointments None recorded. Lab None recorded. Referral None recorded. Procedures None recorded. Surgeries None recorded. Imaging None recorded. Medication Orders ketorolac 60 mg/2 mL intramuscul ar syringe 2022 023 [email or web address] Not available 3 12:43:30 Patient TargetsNo targets recorded. Patient InstructionsNo instructions recorded. Reason for Referral None Reported. Medical Equipment None Reported. Allergies Allergen ID Allergen Name Allergen Category Reaction Reaction Severity Criticality Documentation Date Start Date Code Code System Note Provider Name and Address Organization Details Recorded Time 7430 Product containin g penicilli n (product) medicatio n Not available Not available Not available 04/15/2024 [id number] SNOMED Not Available [facility] - production 4 03:37:26 Medications Name Sig Start Date Stop Date Status Note LastModified by Organization Details LastModified Time atorvastatin 20 mg tablet active Not Available Not Available Not Available prednisone 20 mg tablet active Not Available Not Available Not Available tramadol 50 mg tablet active Not Available Not Available No t Available ketorolac 0.5 % eye drops active Not Available Not Available Not Available lisinopril 5 mg tablet active Not Available Not Available No t Available levalbuterol 1.25 mg/3 mL solution for nebulization active Not Available Not Available Not Available ibuprofen 600 mg tablet active Not Available Not Available Not Available dorzolamide 2 % eye drops active Not Available Not Available Not Available ketorolac 60 mg/2 mL intramuscula r syringe Inject 30 mg by intramuscul ar route. 2022 active Not Available Not Available Not Avai lable levalbuterol HFA 45 mcg/actuatio n aerosol inhaler active Not Available Not Available Not Available Alphagan P 0.1 % eye drops active Not Available Not Available Not Available Lumigan 0.01 % eye drops active Not Available Not Available Not Available Rhopressa 0.02 % eye drops active Not Available Not Available Not Available Vitals Date Recorded Oxygen saturation Oxygen saturation in Arterial blood by Pulse oximetry Heart rate Body temperature Respiratory rate Systolic blood pressure Diastolic blood pressure Provider Name and Address Organization Details Last Updated DateTime 3 98 % 98 % 83 /min 97.5 [degF] 16 /min 124 mm[Hg] 61 mm[Hg] Not Available [facility] - production 12:38:05 Social History None recorded. Functional Status None recorded. Mental Status None recorded. Family History Nothing Reported. Medical History No medical history recorded. Gynecological HistoryNo gynecological history recorded. Obstetrics History GPAL:G 0 P 0 0 0 0 Past Encounters Encounter ID Performer Location Encounter Start Date Encounter Closed Date Diagnosis/Indication Diagnosis SNOMED-CT Code Diagnosis ICD10 Code Diagnosis Note [id number] Chris Mosley MD [facility] [address] [place] [phone] 11/06/2022 12:37:43 11/07/2022 15:04:25 Pain of left ankle joint [id number] M25.572 Health Concerns Section Related Observation LastModified by Organization Detai ls LastModified Time None Recorded Concern Status LastModified by Organization Details LastModified Time None Recorded Advance Directives Directive None Recorded Payers Encounter Date Sequence Insurance Name Policy Number Policy Bowman Covered Member ID Bowman Member ID Guarantor Name 11/06/2022 1 [facility] - DOS PRIOR TO 2022 - DUAL ELIGIBLE (MEDICARE REPLACEMENT/ADV ANTAGE - HMO) Chelsea Amaro [id number] Chelsea Amaro Notes Date Note Type Note Provider Name and Address Organization Details Recorded Time 11/06/2022 text/html This was a supervised home visit with fleet operations manager Unruly Rojas. [facility] Nursing Assessment: Reason For Request: Foot pain Fear of edema Chief Complaints: Pain, Edema PMH: Hypertension, COPD/Asthma Allergies: Penicillin Comments: Spoke with member requesting [facility] visit for eval L foot pain/swelling x 1 week deny trauma. Attempt Tylenol with fair effect. Deny fever/chills. Verify member name/- .................. .................. .................. .................. .................. .................. .................. ............... 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 Pt sts she was working out in the yard during the day Sunday, does not remember injuring it and began expierening pain Sunday overnight. Pt denies itching, f/n/v/d . Pt has been taking 650 mg APAP with no relief. Pt is alert, no distress . VSS . Afebrile . Neuro exam normal. Limping, favoring left side when walking . Lungs CTA. Left ankle appears swollen, no redness, no warmth, strong pedal pulses, pain with ROM and palpation. Pt treated with 30 mg IM ketorolac in the left deltoid . Pt instructed to fu with PCP's office for outpatient imaging . Pt instructed to seek emergent medical care for new or worsening sx, which are reviewed with her. [employer] Deck[employer] Allergies: Penicillin .................. .................. .................. .................. .................. .................. .................. ............... Disposition: Fulfilled Chris Mosley MD [address] [facility],[address], [place], [phone], [place] 11/06/2022 13:50:37 OBGyn Episode No OBEpisode recorded.
== END 2024-09-19 09:46 | disposition home or self-care (01) ==
LOC: HO.HPS 09:21
PROVIDERS: PCP Internal Medicine Endocrinology, Diabetes & Metabolism; Visit Provider Hospitalist
DX: J45.40 Moderate persistent asthma, uncomplicated (principal); J30.9 Allergic rhinitis, unspecified; H40.9 Unspecified glaucoma
CPT/HCPCS: 99214

== ENCOUNTER → 2024-09-19 09:20 | Outpatient (BNVA) | payer OTHER, SELFPAY | PROVIDERS: PCP Internal Medicine Endocrinology, Diabetes & Metabolism; Visit Provider Hospitalist | DX: J45.40 Moderate persistent asthma, uncomplicated (principal); J30.9 Allergic rhinitis, unspecified; H40.9 Unspecified glaucoma | CPT/HCPCS: 99212 ==